=== PATIENT | male | born 1980 | race Caucasian/White ===

== ENCOUNTER → 2022-06-14 | Outpatient (CLI) | payer BC ==
--- NOTE | 2022-06-14 07:27 | US ---
EXAMINATION TYPE: US liver DATE OF EXAM: 06/14/2022 COMPARISON: NONE CLINICAL HISTORY: R74.01 ELEVATION OF LEVELS OF LIVER TRANSAMINASE. 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 Recommend CT scan wi th contrast for confirmation and to exclude other etiologies.
== END | disposition home or self-care (01) ==
LOC: RADUSWWP 06:47
PROVIDERS: ATTEND Family Medicine
DX: R74.01 Elevation of levels of liver transaminase levels (principal)
CPT/HCPCS: 76705

== ENCOUNTER → 2022-09-20 | Outpatient (CLI) | payer BC ==
--- NOTE | 2022-09-20 16:06 | XR ---
EXAMINATION TYPE: XR lumbar spine 2 or 3V DATE OF EXAM: 09/20/2022 CLINICAL HISTORY: MRI lumbar spine 12/19/2011. TECHNIQUE: Three views of the lumbar spine are submitted. COMPARISON: None. FINDINGS: There are 5 lumbar type vertebral bodies identified. No acute fracture or dislocation. Mild retrolist hesis of L3 on L4. Degenerative disc disease L3-L4 with disc space narrowing and endplate sclerosis. Right lateral osteophyte at L3-L4. Vertebral body heights are within normal limits. The overlying sof t tissue appears unremarkable. Surgical clips in the right upper quadrant. IMPRESSION: 1. No acute fracture or dislocation is seen in the lumbar spine. 2. Degenerative disc disease at L3-L4 with mild retrolisthesis of L3 on L4.
== END | disposition home or self-care (01) ==
LOC: RADXRMAIN 15:46
PROVIDERS: ATTEND Chiropractor
DX: M51.36 Other intervertebral disc degeneration, lumbar region (principal); M43.16 Spondylolisthesis, lumbar region
CPT/HCPCS: 72100